=== PATIENT | male | born 1950 | race Caucasian/White ===

== ENCOUNTER 2022-09-28 21:06 | Emergency (ER) | payer MEDICARE | END 2022-09-28 21:31 | disposition home or self-care (01) | LOC: CSHERS 21:06 | DX: Z02.89 Encounter for other administrative examinations (principal); J44.9 Chronic obstructive pulmonary disease, unspecified; F17.210 Nicotine dependence, cigarettes, uncomplicated | CPT/HCPCS: 99283 ==